=== PATIENT | male | born 1975 | race Caucasian/White ===

== ENCOUNTER 2018-04-03 08:04 | Emergency (ER) | payer OTHER ==
[2018-04-03] MEDS: SOD CHLORIDE 0.9% 1,000 ML IV (08:26)
[2018-04-03] MEDS: LORAZEPAM 2 MG INJ IV (08:28)
[2018-04-03 08:36] LABS: ADD MAN DIFF? NO
[2018-04-03 08:41] LABS: WHITE BLOOD COUNT 9.6 10^3/ul (4.8-10.8)
[2018-04-03 08:41] LABS: BASOPHILS % 0.3 % (0.0-2.0); EOSINOPHILS % 0.2 % (0.0-7.0); HEMOGLOBIN 15.6 g/dl (14.0-18.0); LYMPHOCYTES # 2.4 10^3/ul (0.8-2.9); LYMPHOCYTES % 24.7 % (15.0-51.0); MEAN CORPUSCULAR HEMOGLOBIN 28.8 pg (29.0-33.0); MEAN CORPUSCULAR HGB CONC 34.7 g/dl (32.0-37.0); MEAN CORPUSCULAR VOLUME 83.2 fl (82.0-101.0); MEAN PLATELET VOLUME 11.7 fl (7.4-10.4); MONOCYTE # 0.7 10^3/ul (0.3-0.9); NEUTROPHIL # 6.5 10^3/ul (1.6-7.5); NEUTROPHILS % 67.5 % (39.0-77.0); PLATELET COUNT 257 10^3/UL (140-415); RED BLOOD COUNT 5.41 10^6/ul (4.70-6.10); RED CELL DISTRIBUTION WIDTH 12.3 % (11.5-14.5)
[2018-04-03 09:04] LABS: CREATINE KINASE 265 IU/L (23-200)
[2018-04-03 09:17] LABS: CK INDEX 0.5; CK-MB 1.27 ng/ml (0.0-2.4); TROPONIN-I < 0.012 ng/ml (0.000-0.120)
[2018-04-03 10:11] LABS: ANION GAP 27 (5-13); BLOOD UREA NITROGEN 13 mg/dl (7-20); CALCIUM 10.7 mg/dl (8.4-10.2); CARBON DIOXIDE 21 mmol/L (21-31); CHLORIDE 92 mmol/L (97-110); CREATININE 0.81 mg/dl (0.61-1.24); Estimated GFR > 60 mL/min (>60); GLUCOSE 91 mg/dl (70-220); POTASSIUM 4.3 mmol/L (3.5-5.1); SODIUM 140 mmol/L (135-144)
== END 2018-04-03 11:01 | disposition home or self-care (01) ==
LOC: E/R 08:04
DX: F14.180 Cocaine abuse with cocaine-induced anxiety disorder (principal); J45.909 Unspecified asthma, uncomplicated; I10 Essential (primary) hypertension
CPT/HCPCS: 36415; 71045; 80048; 82550; 82553; 84484; 85025; 93005; 96374; 99285-25

== ENCOUNTER 2018-11-30 11:25 | Emergency (ER) | payer SELFPAY, OTHER | END 2018-11-30 13:36 | disposition left against medical advice (07) | LOC: E/R 11:25 | DX: Z53.21 Procedure and treatment not carried out due to patient leaving prior to being seen by health care provider (principal) ==